=== PATIENT | male | born 1960 | race Two or more races ===

== ENCOUNTER 2021-11-25 12:45 | Emergency (ER) | payer OTHER ==
[~2021-11-25] VITALS: Ht 172.7 cm; Wt 68.0 kg
--- NOTE | 2021-11-25 12:50 | NUR ---
PT CAME TO ER C/O RECTAL PAIN FOR 2 MONTHS, WORSE X 1 WEEK. HX RECTAL CA. REPORTS NON BLOODY DIARRHEA THIS MORNING. AAOX4, BREATHING EVEN AND UNLABORED, PULSES 2+ BILATERALLY, SKIN WARM TO TOUCH. ON MONITOR. WILL CONTINUE TO MONITOR.
[2021-11-25] MEDS ORDERED: IV NS 0.9% 500 ML BAG IV ONE (14:30)
[2021-11-25] MEDS ORDERED: IV NS 0.9% 250 ML IV ONE (14:47)
[2021-11-25] MEDS ORDERED: IOHEXOL-300 100 ML VIAL IV ONE (14:47)
--- NOTE | 2021-11-25 15:11 | NUR ---
BACK FROM CT
[2021-11-25 15:19] LABS: BASOPHILS % (AUTO) 0.4 % (0.0-2.0); EOSINOPHILS % (AUTO) 2.2 % (0.0-6.0); HEMATOCRIT 41 % (39-51); LYMPHOCYTES # (AUTO) 0.6 K/uL (0.8-4.8); LYMPHOCYTES % (AUTO) 18.1 % (20.0-44.0); MEAN CORPUSCULAR HGB CONC 34 g/dl (31.0-36.0); MEAN CORPUSCULAR VOLUME 89 fL (80-96); MONOCYTES # (AUTO) 0.4 K/uL (0.1-1.30); MONOCYTES % (AUTO) 12.4 % (2.0-12.0); NEUTROPHILS # (AUTO) 2.4 K/uL (1.8-8.9); NEUTROPHILS % (AUTO) 66.9 % (43.0-81.0); PLATELET COUNT (AUTO) 134 K/uL (150-450); RED BLOOD CELL COUNT(AUTO) 4.63 MIL/uL (4.5-6.0); WHITE BLOOD COUNT (AUTO) 3.6 K/uL (4.3-11.0)
[2021-11-25 15:37] LABS: ALBUMIN 3.2 g/dL (3.4-5.0); BILIRUBIN,DIRECT 0.2 mg/dL (0.0-0.2); BILIRUBIN,TOTAL 0.7 mg/dL (0.2-1.0); CALCIUM, SERUM 8.9 mg/dL (8.5-10.1); CREATININE 0.8 mg/dL (0.6-1.3); POTASSIUM 4.1 mmol/L (3.5-5.1); TOTAL PROTEIN, SERUM 7.9 g/dL (6.4-8.2)
[2021-11-25] MEDS ORDERED: oxyCODONE IR immediate release 5 MG PO PRN (16:00)
[2021-11-25] MEDS ORDERED: OXYC5CAP18 PO ×2 (16:04→16:05)
--- NOTE | 2021-11-25 16:50 | NUR ---
Patient discharged to home in stable condition. Written and verbal after care instructions given. Patient verbalizes understanding of instruction.
--- NOTE | 2021-11-25 16:50 | NUR ---
IV removed. Catheter intact and site benign. Pressure and 4x4 applied to site. No bleeding noted.
[2021-11-25 17:11] VITALS: BP 132/90
== END 2021-11-25 16:50 | disposition home or self-care (01) ==
LOC: ER 12:47
DX: C20 Malignant neoplasm of rectum (principal); G89.29 Other chronic pain; R10.30 Lower abdominal pain, unspecified; I10 Essential (primary) hypertension
CPT/HCPCS: 36415; 74177; 80048; 80076; 83690; 85025; 99285; J7040; J7050; Q9967